=== PATIENT | female | born 1985 | race Caucasian/White ===

== ENCOUNTER 2016-11-21 15:53 | Emergency (ER) | payer MEDICARE, MEDICAID ==
[2016-11-21 17:22] VITALS: BP 108/73
--- NOTE | 2016-11-21 17:40 | UC ---
Respiratory Complaint HPI - History of Current Complaint Chief Complaint: UCGeneralIllness Stated Complaint: SORE THROAT,COUGH Time Seen by Provider: 11/21/16 17:18 Hx Obtained From: Patient Hx Last Menstrual Period: 11/12/15 ?: No Onset/Duration: Gradual Onset, Lasting Weeks - 4, Still Present Timing: Constant - off/on through the day Severity Initially: Moderate Severity Currently: Moderate Character: Cough: Nonproductive Aggravating Factors: Deep Breaths Alleviating Factors: Bronchodilator Associated Signs And Symptoms: Positive: Hoarseness. Negative: Wheezing, Nasal Congestion, Sinus Discomfort Related History: Similar Episode/Dx as: - asthma - Risk Factors Pulmonary Embolism Risk Factors: Oral Contraceptives - Allergies/Home Medications Allergies/Adverse Reactions: Allergies Allergy/AdvReac Type Severity Reaction Status Date / Time Penicillins Allergy Intermediate Rash Verified 11/21/16 17:15 Home Medications: Home Medications Albuterol 2.5MG/3ML (0.083%)* [Ventolin 2.5 MG/3 ML NEB.NIDHI*] 2.5 mg INH Q6H PRN 11/21/16 [History Confirmed 11/21/16] Norgestimate-Ethinyl Estradiol [Sprintec 28 0.25-35 mg-Mcg] 1 tab PO DAILY 11/21 [History Confirmed 11/21/16] Sertraline* [Zoloft*] 50 mg PO BEDTIME 11/21/16 [History Confirmed 11/21/16] PMH/Surg Hx/FS Hx/Imm Hx Respiratory History Of: Reports: Asthma - Surgical History Surgical History: None - Family History Known Family History: Positive: Unknown - adopted - Social History 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 Alcohol Use: None Substance Use Type: None Smoking Status (MU): Never Smoked Tobacco Have You Smoked in the Last Year: No Review of Systems ENT: Sore Throat Respiratory: Cough All Other Systems Reviewed And Are Negative: Yes Physical Exam Triage Information Reviewed: Yes Appearance: Well-Appearing, No Pain Distress, Well-Nourished Vital Signs: Initial Vital Signs Temp 99.3 F 11/21/16 17:17 Pulse 97 11/21/16 17:17 Resp 18 11/21/16 17:17 BP 108/73 11/21/16 17:17 Pulse Ox 98 11/21/16 17:17 Vital Signs Reviewed: Yes Eyes: Positive: Conjunctiva Clear ENT: Positive: Pharynx normal, TMs normal Neck exam: Normal Respiratory: Positive: Lungs clear Cardiovascular Exam: Normal Musculoskeletal Exam: Normal Neurological Exam: Normal Psychological Exam: Normal Skin Exam: Normal UC Diagnostic Evaluation - Laboratory O2 Sat by Pulse Oximetry: 98 Respiratory Course/Dx - Differential Dx/Diagnosis Differential Diagnosis/HQI/PQRI: Asthma, Lower Resp Infection, Sinusitis Provider Diagnoses: asthma with acute exacerbation. Discharge - Discharge Plan Condition: Stable Disposition: HOME Prescriptions: predniSONE TAB* [Deltasone TAB*] 20 mg PO DAILY #18 tab Patient Education Materials: Asthma (ED), Prednisone (By mouth)
== END 2016-11-21 19:47 | disposition home or self-care (01) ==
LOC: UCCORT 15:53
DX: J45.901 Unspecified asthma with (acute) exacerbation (principal); Z88.0 Allergy status to penicillin
CPT/HCPCS: 99212; G0463

== ENCOUNTER 2017-03-19 11:06 | Emergency (ER) | payer MEDICARE, MEDICAID ==
--- NOTE | 2017-03-19 12:11 | UC ---
Abdominal Pain Female HPI - History of Current Complaint Chief Complaint: UCAbdominalPain Stated Complaint: SEVERE ABD PAIN,HOT & COLD CHILLS Time Seen by Provider: 03/19/17 12:05 Hx Obtained From: Patient Hx Last Menstrual Period: ~2014 ?: No Onset/Duration: Sudden Onset - last night sharp stabbing suprapubic, Lasting Hours - 14, Worse Since - this morning. Severity Initially: Moderate Severity Currently: Severe Location: Suprapubic - all across the lower abdomen Radiates: No Character: Cramping - like labor pain, Sharp Aggravating Factor(s): Other: - lifting anything Alleviating Factor(s): Nothing Associated Signs and Symptoms: Positive: Diaphoresis, Fever, Nausea - Risk Factors Ectopic Risk Factor: Maternal Age ^ 30 Ovarian Torsion Risk Factor: Reproductive Age Allergies/Adverse Reactions: Allergies Allergy/AdvReac Type Severity Reaction Status Date / Time Penicillins Allergy Intermediate Rash Verified 03/19/17 11:19 Amoxicillin Allergy Rash Verified 03/19/17 11:19 Sulfamethoxazole Allergy Rash Verified 03/19/17 11:19 w/Trimethoprim [From Bactrim] Home Medications: Home Medications Primidone TAB(*) [Mysoline TAB(*)] 50 mg PO BEDTIME 03/19/17 [History Confirmed 03/19/17] medroxyPROGESTERone ACETATE* [DEPO-Provera] 150 mg IM SEE INSTRUCTIONS 03/19/17 [History Confirmed 03/19/17] PMH/Surg Hx/FS Hx/Imm Hx Respiratory History: Asthma Psychological History: Depression - Surgical History Surgical History: None - Family History Known Family History: Positive: Unknown - adopted - Social History 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 Lives: With Family Alcohol Use: None Substance Use Type: None Smoking Status (MU): Never Smoked Tobacco Have You Smoked in the Last Year: No Review of Systems Constitutional: Fever, Chills Gastrointestinal: Abdominal Pain, Nausea All Other Systems Reviewed And Are Negative: Yes Physical Exam Triage Information Reviewed: Yes Appearance: Well-Nourished, Ill-Appearing, Pain Distress Vital Signs: Initial Vital Signs Temp 98.3 F 03/19/17 11:15 Pulse 86 03/19/17 11:15 Resp 16 03/19/17 11:15 BP 110/67 03/19/17 11:15 Pulse Ox 100 03/19/17 11:15 Vital Signs Reviewed: Yes Eyes: Positive: Conjunctiva Clear ENT: Positive: Pharynx normal, TMs normal Dental: Positive: Gross Decay/Caries @ Neck exam: Normal Respiratory Exam: Normal Cardiovascular Exam: Normal Abdomen Description: Positive: No Organomegaly, Soft, McBurney's Point Tenderness, Peritoneal Signs - diffuse percussion tenderness Bowel Sounds: Positive: Hyperactive Musculoskeletal Exam: Normal Neurological Exam: Normal Psychological Exam: Normal Skin Exam: Normal Abd Pain Female Course/Dx - Differential Dx/Diagnosis Differential Diagnosis: Appendicitis, Ovarian Cyst, Pelvic Inflammatory Disease Provider Diagnoses: right lower quadrant abdominal pain - Physician Notification/Consults Discussed Care of Patient With: Flavio Lorenzo Time Discussed With Above Provider: 12:20 Discharge - Discharge Plan Condition: Guarded Disposition: TRANS HIGHER LVL OF CARE FAC
[2017-03-19 12:24] VITALS: BP 108/68
== END 2017-03-19 12:24 | disposition short-term general hospital (02) ==
LOC: UCCORT 11:06
DX: R10.31 Right lower quadrant pain (principal); Z88.0 Allergy status to penicillin; Z88.2 Allergy status to sulfonamides
CPT/HCPCS: 81003; 84702; 99213; G0463

== ENCOUNTER 2017-11-16 16:15 | Emergency (ER) | payer MEDICARE, MEDICAID | END 2017-11-16 17:41 | disposition left against medical advice (07) | LOC: UCCORT 16:15 | DX: R68.89 Other general symptoms and signs (principal); Z53.21 Procedure and treatment not carried out due to patient leaving prior to being seen by health care provider ==

== ENCOUNTER 2017-11-29 15:46 | Emergency (ER) | payer MEDICARE, MEDICAID ==
[2017-11-29 16:15] VITALS: BP 107/75
--- NOTE | 2017-11-29 16:42 | UC ---
Throat Pain/Nasal Gu[place]ro HPI - HPI Summary HPI Summary: 32 yo female with sore throat and swollen glands x 4-5 days sinus pressure and pain nasal congestion - History of Current Complaint Chief Complaint: UCRespiratory Stated Complaint: SWOLLEN THROAT/DIFFICULTY BREATHING Time Seen by Provider: 11/29/17 16:27 Hx Obtained From: Patient Hx Last Menstrual Period: ON DEPO, DOES NOT HAVE REGULAR PERIODS Onset/Duration: Gradual Onset, Lasting Days Severity: Moderate Pain Intensity: 7 Pain Scale Used: 0-10 Numeric Cough: None Associated Signs & Symptoms: Positive: Sinus Discomfort - Allergies/Home Medications Allergies/Adverse Reactions: Allergies Allergy/AdvReac Type Severity Reaction Status Date / Time amoxicillin Allergy Unknown Rash Verified 11/29/17 16:34 Penicillins Allergy Unknown Rash Verified 11/29/17 16:34 sulfamethoxazole Allergy Unknown Rash Verified 11/29/17 16:34 [From Bactrim] trimethoprim [From Bactrim] Allergy Unknown Rash Verified 11/29/17 16:34 PMH/Surg Hx/FS Hx/Imm Hx Previously Healthy: Yes - Surgical History Surgical History: None - Family History Known Family History: Positive: Hypertension - Social History Alcohol Use: None Substance Use Type: None Smoking Status (MU): Never Smoked Tobacco Have You Smoked in the Last Year: No Review of Systems Constitutional: Negative Skin: Negative Eyes: Negative ENT: Sore Throat, Sinus Congestion, Sinus Pain/Tenderness Respiratory: Negative Cardiovascular: Negative Gastrointestinal: Negative Genitourinary: Negative Motor: Negative Neurovascular: Negative Musculoskeletal: Negative Neurological: Negative Psychological: Negative Is Patient Immunocompromised?: No All Other Systems Reviewed And Are Negative: Yes Physical Exam Triage Information Reviewed: Yes Appearance: Well-Appearing, No Pain Distress, Well-Nourished Vital Signs: Initial Vital Signs Temp 99.4 F 11/29/17 16:06 Pulse 93 11/29/17 16:06 Resp 18 11/29/17 16:06 BP 107/75 11/29/17 16:06 Pulse Ox 97 11/29/17 16:06 Eyes: Positive: Conjunctiva Clear ENT: Positive: Pharyngeal erythema, Nasal congestion, Sinus tenderness, Uvula midline Neck: Positive: Supple, Nontender - cervical, Tenderness @ - ant cervical LN, Enlarged Nodes @ Respiratory: Positive: Lungs clear, Normal breath sounds, No respiratory distress, No accessory muscle use Cardiovascular: Positive: RRR, No Murmur Musculoskeletal: Positive: ROM Intact, No Edema Neurological: Positive: Alert Psychological Exam: Normal Skin Exam: Normal Diagnostics - Laboratory Diagnostic Studies Completed/Ordered: strep (-) Throat Pain/Nasal Course/Dx - Differential Dx/Diagnosis Provider Diagnoses: pharyngitis. ? sinusitis Discharge - Discharge Plan Condition: Stable Disposition: HOME Prescriptions: Azithromycin TAB* [Zithromax TAB*] 250 mg PO DAILY #6 tab Patient Education Materials: Pharyngitis (ED) Referrals: Urban Mcgregor [Primary Care Provider] - Additional Instructions: recheck for new or worsening symptoms
== END 2017-11-29 16:46 | disposition home or self-care (01) ==
LOC: UCCORT 15:46
DX: J02.9 Acute pharyngitis, unspecified (principal); Z88.1 Allergy status to other antibiotic agents; Z88.0 Allergy status to penicillin
CPT/HCPCS: 87651; 99212; G0463